=== PATIENT | female | born 1965 | race Caucasian/White ===

== ENCOUNTER → 2016-12-28 | Outpatient (CLI) | payer BC ==
--- NOTE | 2016-12-28 11:58 | MM ---
Reason for exam: screening (asymptomatic). Last mammogram was performed 2 years and 1 month ago. History: Family history of breast cancer in aunt and premenopausal breast cancer in cousin. Took hormonal contraceptives beginning at age 20. Physical Findings: A clinical breast exam by your physician is recommended on an annual basis and results should be correlated with mammographic findings. MG Screening Mammo w CAD Bilateral CC and MLO view(s) were taken. Prior study comparison: December 02, 2014, bilateral MG screening mammo w CAD. October 29, 2010, bilateral digital screening mammo w/CAD. The breast tissue is heterogeneously dense. This may lower the sensitivity of mammography. Finding: There are typically benign calcifications in the lower quadrant of the left breast. There is no discrete abnormality. ASSESSMENT: Benign, BI-RAD 2 RECOMMENDATION: Routine screening mammogram of both breasts in 1 year.
--- NOTE | 2016-12-28 14:49 | BD ---
EXAMINATION TYPE: MG DEXA axial skeleton. DATE OF EXAM: 12/28/2016 CLINICAL HISTORY: Osteoporosis per order. COMPARISON: DEXA bone scan December 02, 2014. Height: 66.5 Weight: 162 FRAX RISK QUESTIONS: Alcohol (3 or more units per day): no Family History (Parent hip fracture): no Glucocorticoids (More than 3mos): no (Ex: prednisone, prednisolone, methylprednisolone, dexamethasone, and hydrocortisone). History of Fracture in Adulthood: no Secondary Osteoporosis: 1. Type 1 Diabetes: no 2. Hyperthyroidism: no 3. Menopause before 45: n/a 4. Malnutrition: no 5. Chronic liver disease: no Rheumatoid Arthritis: no Current Tobacco Use: no RISK FACTORS HISTORY OF: Family History of Osteoporosis: yes, mother Drink Alcohol: occasionally Active: yes Diet low in dairy products/other sources of calcium: somewhat Postmenopausal woman: no If Premenopausal, do you have irregular periods: yes, LMP Jul 2016 Take estrogen and/or progesterone medications: not now How long: hormonal contraceptives age [age] Lost more than 2 inches in height since high school: no Frequent falls: no Poor Health: no Hyperparathyroidism: no Adrenal Insufficiency: no MEDICATIONS: Prednisone or other steroids: no Thyroid Medications: no Osteoporosis Medications: no Additional Medications: multivitamin, calcium Additional History: n/a EXAM MEASUREMENTS: Bone mineral densitometry was performed using the [employer] System. Bone mineral density as measured about the Lumbar spine is: ----- L1-L4(G/cm2): 0.833 T Score Values are as follows: ----- L2: -2.8 ----- L3: -3.5 ----- L4: -3.3 ----- L1-L4: -2.9 Bone mineral density has: Decreased -7.9% since study of: 12/02/2014 Bone mineral density about the R hip (g/cm2): 0.752 Bone mineral density about the L hip (g/cm2): 0.724 T Score values are as follows: -----R Neck: -2.1 -----L Neck: -2.3 -----R Total: -1.4 -----L Total: -2.1 Bone mineral density has: Decreased -3.2% since study of: 12/02/2014 IMPRESSION: Osteoporosis (T Score less than -2.5) as noted by T Score values at the Lumbar Spine is now present . Bone density is worsened or decreased from prior. There is increased fracture risk and therapy is u sually indicated based on age. Re-Screen 1-2 years. NOTE: T-SCORE=SD OF THE YOUNG ADULT MEAN.
== END | disposition home or self-care (01) ==
LOC: RADBDWWP 09:10
PROVIDERS: ATTEND Obstetrics & Gynecology
DX: Z12.31 Encounter for screening mammogram for malignant neoplasm of breast (principal); M81.0 Age-related osteoporosis without current pathological fracture
CPT/HCPCS: 77080; G0202

== ENCOUNTER → 2017-10-24 | Outpatient (CLI) | payer BC ==
--- NOTE | 2017-10-24 11:22 | XR ---
EXAMINATION TYPE: XR forearm 2 views RT, XR hand complete 3 views right plus navicular view of the wrist. DATE OF EXAM: 10/24/2017 COMPARISON: NONE HISTORY: 52 year-old female right elbow and hand pain, injury 10 days ago. FINDINGS: Right forearm: No elbow joint effusion. No fracture of the radius or ulna is seen. Hand: The wrist articulation appears grossly intact. No acute fracture, subluxation, or dislocation is seen . Navicular view of the wrist shows no evidence scaphoid fracture widening at the scapholunate interv al. IMPRESSION: 1. Right forearm: No acute osseous abnormality seen. 2. Right hand: No acute osseous abnormality seen.
== END | disposition home or self-care (01) ==
LOC: RADXRYALE 11:00
PROVIDERS: ATTEND Physician Assistant Medical
DX: M25.521 Pain in right elbow (principal); M79.641 Pain in right hand

== ENCOUNTER → 2019-03-22 | Outpatient (CLI) | payer BC ==
--- NOTE | 2019-03-22 11:29 | BD ---
EXAMINATION TYPE: Axial Bone Density DATE OF EXAM: 03/22/2019 COMPARISON: 12/28/2016 CLINICAL HISTORY: M 80.0 Height: 66 IN Weight: 176 LBS FRAX RISK QUESTIONS: History of Fracture in Adulthood: RT TIBIA PLATEAU FX AGE 52 RISK FACTORS HISTORY OF: Family History of Osteoporosis: YES MOTHER Active: YES Postmenopausal woman: AGE 52 MEDICATIONS: Additional Medications: Additional History: CALCIUM, VIT D, MULTI VIT EXAM MEASUREMENTS: Bone mineral densitometry was performed using the [employer] System. Bone mineral density as measured about the Lumbar spine is: ----- L1-L4(G/cm2): 0.766 T Score Values are as follows: ----- L2: -3.4 ----- L3: -3.9 ----- L4: -4.0 ----- L1-L4: -3.4 Bone mineral density has: Decreased -7.9% since study of: 12/28/2016 Bone mineral density about the R hip (g/cm2): 0.731 Bone mineral density about the L hip (g/cm2): 0.741 T Score values are as follows: -----R Neck: -2.2 -----L Neck: -2.1 -----R Total: -1.9 -----L Total: -1.9 Bone mineral density has: Decreased -1.9% since study of: 12/28/2016 IMPRESSION: Osteoporosis (T Score less than -2.5) with respect to the lumbar spine. There is increased fracture risk and therapy is usually indicated based on age. Re-Screen 1-2 years. NOTE: T-SCORE=SD OF THE YOUNG ADULT MEAN.
--- NOTE | 2019-03-26 08:22 | MM ---
Reason for exam: screening (asymptomatic). Last mammogram was performed 2 years and 3 months ago. History: Patient is postmenopausal. Family history of breast cancer in maternal aunt and premenopausal breast cancer in paternal cousin. Took hormonal contraceptives beginning at age 20. Physical Findings: A clinical breast exam by your physician is recommended on an annual basis and results should be correlated with mammographic findings. MG 3D Screening Mammo W/Cad Bilateral CC and MLO view(s) were taken. XCCL view(s) were taken of the right breast. Prior study comparison: December 28, 2016, bilateral MG screening mammo w CAD. December 02, 2014, bilateral MG screening mammo w CAD. The breast tissue is heterogeneously dense. This may lower the sensitivity of mammography. There are benign appearing round calcifications in the right breast. There is no discrete abnormality. ASSESSMENT: Benign, BI-RAD 2 RECOMMENDATION: Routine screening mammogram of both breasts in 1 year.
== END ==
LOC: RADMAMWWP 08:17
PROVIDERS: ATTEND Obstetrics & Gynecology
DX: Z12.31 Encounter for screening mammogram for malignant neoplasm of breast (principal); M81.0 Age-related osteoporosis without current pathological fracture
CPT/HCPCS: 77063; 77067; 77080

== ENCOUNTER → 2021-08-23 | Outpatient (CLI) | payer MEDICAID ==
--- NOTE | 2021-08-23 16:24 | BD ---
EXAMINATION TYPE: Axial Bone Density DATE OF EXAM: 08/23/2021 COMPARISON: 2019 CLINICAL HISTORY: Postmenopausal screening Height: 5 FT 5 1/2 IN Weight: 157 FRAX RISK QUESTIONS: Alcohol (3 or more units per day): NO Family History (Parent hip fracture): NO Glucocorticoids (More than 3mos): NO (Ex: prednisone, prednisolone, methylprednisolone, dexamethasone, and hydrocortisone). History of Fracture in Adulthood: YES Secondary Osteoporosis: 1. Type 1 Diabetes: NO 2. Hyperthyroidism: NO 3. Menopause before 45: NO 4. Malnutrition: NO 5. Chronic liver disease: NO Rheumatoid Arthritis: NO Current Tobacco Use: NO RISK FACTORS HISTORY OF: Surgery to Spine/Hip(right/left)/Wrist (right/left): NO Family History of Osteoporosis: YES Active: YES Diet low in dairy products/other sources of calcium: NO Postmenopausal woman: YES Take estrogen and/or progesterone medications: NO Lost more than 2 inches in height since high school: NO Frequent falls: NO Poor Health: GOOD Hyperparathyroidism: NO Adrenal Insufficiency: NO MEDICATIONS: Additional Medications: NONE Additional History: EXAM MEASUREMENTS: Bone mineral densitometry was performed using the [employer] System. Bone mineral density as measured about the Lumbar spine is: ----- L1-L4(G/cm2): 0.759 T Score Values are as follows: ----- L2: -3.4 ----- L3: -3.9 ----- L4: -4.0 ----- L1-L4: -3.5 Bone mineral density has: INCREASED 0.1 % since study of: 2018 Bone mineral density about the R hip (g/cm2): 0.738 Bone mineral density about the L hip (g/cm2): 0.746 T Score values are as follows: -----R Neck: -2.2 -----L Neck: -2.1 -----R Total: -2.1 -----L Total: -2.3 Bone mineral density has: DECREASED -4.7 % since study of: 2019 IMPRESSION: Osteoporosis (T Score less than -2.5). There is increased fracture risk and therapy is usually indicated based on age. Re-Screen 1-2 years. NOTE: T-SCORE=SD OF THE YOUNG ADULT MEAN.
--- NOTE | 2021-08-24 08:26 | MM ---
Reason for exam: screening (asymptomatic). Last mammogram was performed 2 years and 5 months ago. History: Patient is postmenopausal. Family history of breast cancer in paternal aunt and premenopausal breast cancer in paternal cousin. Took hormonal contraceptives for 15 years beginning at age 20. Physical Findings: A clinical breast exam by your physician is recommended on an annual basis and results should be correlated with mammographic findings. MG 3D Screening Mammo W/Cad Bilateral CC and MLO view(s) were taken. XCCL view(s) were taken of the right breast. Prior study comparison: March 22, 2019, bilateral MG 3d screening mammo w/cad. December 28, 2016, bilateral MG screening mammo w CAD. The breast tissue is heterogeneously dense. This may lower the sensitivity of mammography. There are benign appearing round calcifications bilaterally. There is no discrete abnormality. ASSESSMENT: Benign, BI-RAD 2 RECOMMENDATION: Routine screening mammogram of both breasts in 1 year.
== END | disposition home or self-care (01) ==
LOC: RADMAMWWP 12:35
PROVIDERS: ATTEND Family Medicine
DX: Z12.31 Encounter for screening mammogram for malignant neoplasm of breast (principal); M84.80 Other disorders of continuity of bone, unspecified site; M81.0 Age-related osteoporosis without current pathological fracture
CPT/HCPCS: 77063; 77067; 77080

== ENCOUNTER → 2023-08-24 | Outpatient (CLI) | payer MEDICAID, BC ==
--- NOTE | 2023-08-24 12:06 | BD ---
EXAMINATION TYPE: Axial Bone Density DATE OF EXAM: 08/24/2023 CLINICAL HISTORY: 58 years old Female. ICD-10 CODE: M81.0 AGE RELATED OSTEOPOROSIS Height: 65.5in Weight: 165lb FRAX RISK QUESTIONS: History of Fracture in Adulthood: yes Secondary Osteoporosis: RISK FACTORS HISTORY OF: MEDICATIONS: EXAM MEASUREMENTS: Bone mineral densitometry was performed using the [employer] System. Bone mineral density as measured about the Lumbar spine is: ----- L1-L4(G/cm2): 0.760 T Score Values are as follows: ----- L1: -2.9 ----- L2: -3.7 ----- L3: -3.7 ----- L4: -3.8 ----- L1-L4: -3.5 Z Score Values are as follows: ----- L1: -2.1 ----- L2: -2.9 ----- L3: -3.0 ----- L4: -3.0 ----- L1-L4: -2.7 Bone mineral density has: Increased 0.1% since study of: 08-23-21 Bone mineral density about the R hip (g/cm2): 0.766 Bone mineral density about the L hip (g/cm2): 0.726 T Score values are as follows: -----R Neck: -1.8 -----L Neck: -2.2 -----R Total: -1.9 -----L Total: -2.2 Z Score values are as follows: -----R Neck: -0.9 -----L Neck: -1.2 -----R Total: -1.3 -----L Total: -1.6 Bone mineral density has: Increased 1.6% since study of: 08-23-21 FRAX%s: The graph provided illustrates a 17% chance for a major osteoporotic fx and a 2.6% chance for the hips probability for fx in 10 years time. IMPRESSION: Osteopenia (T Score between -2.5 and -1). There is slightly increased risk of fracture and the patient may be considered for treatment. Re-Screen 2-5 years. NOTE: T-SCORE=SD OF THE YOUNG ADULT MEAN.
--- NOTE | 2023-08-25 10:35 | MM ---
Reason for Exam: Screening (asymptomatic). Last mammogram was performed 2 year(s) and 0 month(s) ago. Patient History: Menarche at age 12. First Full-Term at age 26. Postmenopausal. Patient has history of breast feeding. Hormonal Contraceptives for 15 years from age 20 until age 35. Paternal cousin had breast cancer. Paternal aunt had breast cancer. Paternal grandmother had ovarian cancer under age 50. Risk Values: Ebony 5 year model risk: 1.5%. NCI Lifetime model risk: 8.3%. Prior Study Comparison: 12/02/2014 Bilateral Screening Mammogram, [facility]. 12/28/2016 Bilateral Screening Mammogram, [facility]. 03/22/2019 Bilateral Screening Mammogram, [facility]. 08/23/2021 Bilateral Screening Mammogram, [facility]. Tissue Density: The breast tissue is heterogeneously dense. This may lower the sensitivity of mammography. Findings: Analyzed By CAD. There is no suspicious group of microcalcifications or new suspicious mass in either breast. Overall Assessment: Benign, BI-RAD 2 Management: Screening Mammogram of both breasts in 1 year. . Patient should continue monthly self-breast exams. A clinical breast exam by your physician is recommended on an annual basis. This exam should not preclude additional follow-up of suspicious palpable abnormalities. Note on Ebony scores and lifetime risk: 1. A Ebony score greater than 3% is considered moderate risk. If this is the case, consider specialist referral to assess eligibility for a risk reducing agent. 2. If overall lifetime risk for the development of breast cancer is 20% or higher, the patient may qualify for future screening with alternating mammogram and breast MRI. Electronically signed and approved by: Deon Lloyd M.D. Radiologis
== END | disposition home or self-care (01) ==
LOC: RADMAMWWP 08:47
PROVIDERS: ATTEND Family Medicine
DX: Z12.31 Encounter for screening mammogram for malignant neoplasm of breast (principal); M81.0 Age-related osteoporosis without current pathological fracture; Z80.3 Family history of malignant neoplasm of breast
CPT/HCPCS: 77063; 77067; 77080

== ENCOUNTER → 2024-10-22 | Outpatient (CLI) | payer MEDICAID ==
--- NOTE | 2024-10-23 07:51 | MM ---
Reason for Exam: Screening (asymptomatic). Last mammogram was performed 1 year(s) and 2 month(s) ago. Patient History: Menarche at age 12. First Full-Term at age 26. Postmenopausal. Patient has history of breast feeding. Hormonal Contraceptives for 15 years from age 20 until age 35. Paternal cousin had breast cancer. Paternal aunt had breast cancer. Paternal grandmother had ovarian cancer under age 50. Risk Values: Ebony 5 year model risk: 1.6%. NCI Lifetime model risk: 8.1%. Prior Study Comparison: 03/22/2019 Bilateral Screening Mammogram, [facility]. 08/23/2021 Bilateral Screening Mammogram, [facility]. 08/24/2023 Bilateral MG 3D screening mammo w/cad, [facility]. Tissue Density: The breasts are heterogeneously dense, which may obscure small masses. Findings: Analyzed By CAD. There is no suspicious group of microcalcifications or new suspicious mass in either breast. Overall Assessment: Negative, BI-RAD 1 Management: Screening Mammogram of both breasts in 1 year. Patient should continue monthly self-breast exams. A clinical breast exam by your physician is recommended on an annual basis. This exam should not preclude additional follow-up of suspicious palpable abnormalities. Note on Ebony scores and lifetime risk: 1. A Ebony score greater than 3% is considered moderate risk. If this is the case, consider specialist referral to assess eligibility for a risk reducing agent. 2. If overall lifetime risk for the development of breast cancer is 20% or higher, the patient may qualify for future screening with alternating mammogram and breast MRI. [facility], , 10/23/2024 7:48 AM. Electronically signed and approved by: Jaciel Haddad M.D. Radiologist
== END | disposition home or self-care (01) ==
LOC: RADMAMWWP 16:32
PROVIDERS: ATTEND Family Medicine
DX: Z12.31 Encounter for screening mammogram for malignant neoplasm of breast (principal); R92.333 Mammographic heterogeneous density, bilateral breasts; Z78.0 Asymptomatic menopausal state; Z80.3 Family history of malignant neoplasm of breast; Z92.0 Personal history of contraception
CPT/HCPCS: 77063; 77067